=== PATIENT | male | born 1970 | race Caucasian/White ===

== ENCOUNTER 2020-06-04 07:09 | Day surgery (SDC) | payer BC ==
[~2020-06-04] VITALS: Ht 175.3 cm; Wt 139.2 kg
[~2020-06-04 07:09] MED LIST: ESTER-C 1,0001 EACH PO; FISH OIL DR 1,1 EAC1 PO; GLUCOSAMINE1000 MG PO; LIPITOR40 MG PO; LISINOPRIL-HCT1 EAC1 PO; MEN'S MULTIVIT1 EACH PO; NAPROXEN500 M1 PO; NORCO 5-325 TA1 EACH PO; ONE A DAY PO
--- NOTE | 2020-06-04 08:29 | NUR ---
06/04/20 0829 Mei Nixon 0822- PT ARRIVES TO PACU EASILY AROUSABLE TO VOICE. PT REPORTS NO PAIN OR NAUSEA AND FALLS BACK TO SLEEP. RESP EVEN AND UNLABORED. OXYGEN SAT HIGH 90'S TO 100% ON 3L VIA NC. 0827- PT HAS A HISTORY OF SLEEP APNEA AND NEEDS AWOKEN TO TAKE BREATHS PERIODICALLY. PT IS ABLE TO WAKE HIMSELF WELL TO TAKE BREATHS.
--- NOTE | 2020-06-04 10:09 | OR ---
[facility] [address], [place] [address] Signed DATE OF OPERATION: 06/04/2020 SURGEON: Do De Souza MD PREOPERATIVE DIAGNOSES: 1. Screening. 2. Intermittent rectal bleeding. POSTOPERATIVE DIAGNOSIS: Minimal sigmoid diverticulosis. PROCEDURE: Colonoscopy without biopsy. ESTIMATED BLOOD LOSS: None. INDICATIONS: Sheryl is a 49-year-old gentleman, asked to see me for initial screening colonoscopy. He talked about intermittent blood in his stool maybe a couple times a year. He gives no family history of colon cancer or polyps. He said his dad did have stomach cancer and cirrhosis of the liver. Sheryl does not specifically complain of hemorrhoids. In the office, I gave Sheryl a pamphlet on colonoscopy and we looked at that together along with the risks including, but not limited to gas bloating, crampy abdominal pain, bleeding, perforation requiring surgery, and missed diagnosis. We also discussed the need for IV conscious sedation, he had expressed understanding and wished to proceed. DESCRIPTION OF PROCEDURE: Sheryl was taken into our endoscopy suite and placed in the left lateral decubitus position. He was given 5 mg of Versed and 100 mcg of fentanyl to cover the case. A digital rectal exam was performed and this was unremarkable. The adult colonoscope was introduced and advanced under direct visualization of the camera into the cecum itself without difficulty. His prep was average. He had a couple of areas of liquid stool, most of which was suctioned out. We could see appendiceal orifice and the ileocecal valve. The scope was slowly withdrawn. We took several pictures throughout for photodocumentation. He had just a few diverticula in the sigmoid colon. They were minimal in size, few in number, and scattered about. There were no polyps in the colon or rectum. Upon retroflexion of scope, he really had very minimal internal hemorrhoid tissue. After this, the gas was suctioned out and colonoscope removed. Sheryl tolerated the procedure quite well. Electronically Signed By: DO DE SOUZA MD 06/04/20 1009 PATIENT NAME: SHERYL LOMAS OPERATIVE REPORT DATE OF : 66 REPORT #: [id number] PHYSICIAN: DO DE SOUZA MD PCP: TO MALDONADO PA-C REPORT IS CONFIDENTIAL AND NOT TO BE RELEASED WITHOUT AUTHORIZATION [address] [address] Signed RECOMMENDATIONS: Sheryl can follow up in 10 years for a repeat colonoscopy. Do De Souza MD ALB/MODL /[id number] cc: ISAAC Walls MD Copies: TO MALDONADO PA-C, ANDREW L MD ~ Electronically Signed By: DO DE SOUZA MD 06/04/20 1009 PATIENT NAME: SHERYL LOMAS OPERATIVE REPORT DATE OF : 66 REPORT #: [id number] PHYSICIAN: DO DE SOUZA MD PCP: TO MALDONADO PA-C REPORT IS CONFIDENTIAL AND NOT TO BE RELEASED WITHOUT AUTHORIZATION
--- NOTE | 2020-06-05 15:57 | PATH ---
[facility] [address] [place], [place] [address] Signed SPECIMEN(S): A PROXIMAL ASCENDING POLYP SPECIMEN SOURCE: A. PROXIMAL ASCENDING POLYP CLINICAL HISTORY: Intermittent rectal bleeding, screening. Post Op: Diverticulosis. MICROSCOPIC DESCRIPTION: Histologic sections of all submitted blocks are examined by light microscopy. These findings, together with the gross examination, support the pathologic diagnosis. FINAL PATHOLOGIC DIAGNOSIS: Proximal ascending polyp, biopsy: - Polypoid colonic mucosa with slight hyperplastic features. - Negative for pathologic inflammation or definite dysplasia. JVR:cml:C2NR GROSS DESCRIPTION: The specimen, labeled "DS, proximal ascending colon polyp," is received in formalin and consists of two cage soft tissue fragment(s) that measure 0.1 cm in greatest dimension. The specimen is entirely submitted in cassette (A1). JS (under the direct supervision of a pathologist) The Gross Description was prepared using a voice recognition system. The report was reviewed for accuracy; however, sound-alike word errors, addition and/or deletions may occur. If there is any question about this report, please contact Client Services. PERFORMING LABORATORY: The technical component was performed by [facility], [address] [place] [id number] (Environmental Control Administrator: Christine Wright MD; CLIA# [id number]). Professional interpretation was performed by [facility], [place] [address] (Environmental Control Administrator: Chidi Ragsdale M.D.). Diagnostician: Chidi Ragsdale MD Pathologist Electronically Signed 06/05/2020 PATIENT NAME: SHERYL LOMAS PATHOLOGY DATE OF : 66 REPORT #: [id number] PHYSICIAN: JULIANE COYLE PCP: TO MALDONADO PA-C REPORT IS CONFIDENTIAL AND NOT TO BE RELEASED WITHOUT AUTHORIZATION [address] [address] Signed Copies: ~ PATIENT NAME: SHERYL LOMAS PATHOLOGY DATE OF : 66 REPORT #: [id number] PHYSICIAN: JULIANE PATHOLOGY PCP: TO MALDONADO PA-C REPORT IS CONFIDENTIAL AND NOT TO BE RELEASED WITHOUT AUTHORIZATION
== END 2020-06-04 09:15 | disposition home or self-care (01) ==
LOC: OPS 07:09 → DS 07:09 → OPS 08:15 → DS 08:15 → OPS 09:15
PROVIDERS: ATTEND Colon & Rectal Surgery
PROC: 0DBK8ZX Excision of Ascending Colon, Via Natural or Artificial Opening Endoscopic, Diagnostic (ICD-10-PCS; principal; 2020-06-04 08:15)
DX: Z12.11 Encounter for screening for malignant neoplasm of colon (principal); K63.5 Polyp of colon; K64.8 Other hemorrhoids; K57.30 Diverticulosis of large intestine without perforation or abscess without bleeding; I10 Essential (primary) hypertension; E78.5 Hyperlipidemia, unspecified; E66.01 Morbid (severe) obesity due to excess calories; F17.220 Nicotine dependence, chewing tobacco, uncomplicated; Z79.899 Other long term (current) drug therapy; Z68.41 Body mass index [BMI] 40.0-44.9, adult
CPT/HCPCS: 99153; G0500; J2250; J3010; J7121

== ENCOUNTER 2022-04-14 17:48 | Emergency (ER) | payer BC ==
[~2022-04-14] VITALS: Ht 175.3 cm; Wt 149.7 kg
[2022-04-14] MEDS ORDERED: AMOX TR-K CLV1 EAC1 PO (20:38)
[2022-04-14] MEDS ORDERED: LASIX20 MG PO (20:38)
== END 2022-04-14 21:09 | disposition home or self-care (01) ==
LOC: ED 17:48
DX: L03.116 Cellulitis of left lower limb (principal); I10 Essential (primary) hypertension; Z79.899 Other long term (current) drug therapy
CPT/HCPCS: 36415; 80053; 83880; 85025; 96374; 99283-25; J1940